=== PATIENT | female | born 1990 | race Caucasian/White ===

== ENCOUNTER 2016-07-08 06:37 | Emergency (ER) | payer MEDICAID, OTHER | END 2016-07-08 07:31 | disposition home or self-care (01) | DX: J02.9 Acute pharyngitis, unspecified (principal) ==

== ENCOUNTER 2017-07-11 10:31 | Outpatient (CLI) | payer BC | END 2017-07-11 10:32 | disposition critical access hospital (66) | LOC: EMS 10:31 | PROVIDERS: ATTEND Surgery | DX: R07.9 Chest pain, unspecified (principal) | CPT/HCPCS: A0425; A0427 ==

== ENCOUNTER 2017-07-11 10:49 | Emergency (ER) | payer BC ==
--- NOTE | 2017-07-11 10:57 | ED Physician Documentation ---
History of Present Illness - Stated complaint Stated Complaint: CP - Additonal information Additional information: hx from pt 26 female healthy but strong fhx ACD starting in age 30s and 40s has been having int CP for 6 months but has not seen her PMD or been worked up for that today more severe episode waxing and waning but present from 9-11 AM with SOA and feeling faint no diaphoresis no NV no leg pain or swelling no recent travel no fever cough pain resolved now called PMD and referred to the ER Review of Systems Constitutional: denies: Fever, Sweats Cardiac: reports: Chest pain / pressure Respiratory: reports: Dyspnea. 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 - Present Medications Home Medications: Ambulatory Orders Medication Instructions Recorded Confirmed No Known Home Medications [No 06/27/16 07/11/17 Known Home Medications] - Allergies Allergies/Adverse Reactions: Allergies Allergy/AdvReac Type Severity Reaction Status Date / Time No Known Drug Allergies Allergy Verified 07/11/17 10:59 - Social History Does the pt smoke?: No Smoking Status: Never smoker Does the pt drink ETOH?: No Does the pt have substance abuse?: No - Immunizations Immunizations are current?: Yes - POLST Patient has POLST: No PD ED PE NORMAL - Vitals Vital signs reviewed: Yes - General General: Alert and oriented X 3 - HEENT HEENT: PERRL - Neck Neck: Supple, no meningeal sign - Cardiac Cardiac: RRR - Respiratory Respiratory: No respiratory distress, Clear bilaterally - Abdomen Abdomen: Soft, Non tender - Derm Derm: Normal color - Extremities Extremities: No deformity - Neuro Neuro: Alert and oriented X 3, No motor deficit, No sensory deficit Results - Vitals Vitals: Vital Signs - 24 hr 07/11/17 07/11/17 07/11/17 10:50 12:53 14:59 Temperature 36.4 C L Heart Rate 82 86 94 Respiratory 18 16 18 Rate Blood Pressure 147/99 H 137/89 H 126/74 O2 Saturation 98 98 97 Oxygen O2 Source Room air - EKG (time done) 1058 Rate: Rate (enter#) (86) Rhythm: NSR [place]: Normal Intervals: Normal ND Ischemia: Normal ST segments - Labs Labs: Laboratory Tests 07/11/17 07/11/17 07/11/17 11:06 11:06 11:06 WBC 9.1 RBC 5.00 Hgb 13.6 Hct 40.5 MCV 81.0 MCH 27.2 MCHC 33.5 RDW 13.9 Plt Count 238 MPV 8.0 Neut # 6.2 Lymph # 2.3 Saunders # 0.3 Eos # 0.2 Baso # 0.1 Absolute Nucleated RBC 0.00 Nucleated RBC % 0.1 Sodium 138 Potassium 3.9 Chloride 101 Carbon Dioxide 22 Anion Gap 15.0 H BUN 12 Creatinine 0.6 Estimated GFR (MDRD) 120 Glucose 97 Calcium 9.4 Total Bilirubin 0.5 AST 27 ALT 37 Alkaline Phosphatase 65 Troponin I < 0.04 Total Protein 8.4 H Albumin 4.3 Globulin 4.1 Albumin/Globulin Ratio 1.0 Lipase 20 L 07/11/17 13:56 WBC RBC Hgb Hct MCV MCH MCHC RDW Plt Count MPV Neut # Lymph # Saunders # Eos # Baso # Absolute Nucleated RBC Nucleated RBC % Sodium Potassium Chloride Carbon Dioxide Anion Gap BUN Creatinine Estimated GFR (MDRD) Glucose Calcium Total Bilirubin AST ALT Alkaline Phosphatase Troponin I < 0.04 Total Protein Albumin Globulin Albumin/Globulin Ratio Lipase - Rads (name of study) CXR Radiology: See rad report (no acute) PD MEDICAL DECISION MAKING - ED course ED course: HEART score 2 (mod suspicious hx and 1 risk factor) neg trop at 0 hr will rpt 3 hr trop and if neg pt very low riisk and does not need emergent stress testing and will dc also PERC neg so do not feel needs CT Departure - Departure Disposition: 01 Home, Self Care Clinical Impression: Chest pain Qualifiers: Chest pain type: unspecified Qualified Code(s): R07.9 - Chest pain, unspecified Condition: Good Instructions: ED Chest Pain Atypical Unkn Cause Follow-Up: Ulisses Powers DO [Primary Care Provider] - Comments: Your heart checked out fine - it does not seem you pain is due to a heart attack. Although I don't think todays pain was due to your heart, your strong family history of cardiac disease is concerning and it might be a good idea to discuss getting a stress test with your PMD. Your work up also does not suggest a blood clot in your lung, an aneurysm or your aorta, or a lung infection/collapse
[2017-07-11 11:16] LABS: BASOPHILS # (AUTO) 0.1 10^3/uL (0.0-0.1); BASOPHILS % (AUTO) 0.6 %; EOSINOPHILS # (AUTO) 0.2 10^3/uL (0.0-0.7); EOSINOPHILS % (AUTO) 2.2 %; HGB - HEMOGLOBIN 13.6 g/dL (12.0-16.0); LYMPHOCYTES # (AUTO) 2.3 10^3/uL (1.5-3.5); LYMPHOCYTES % (AUTO) 25.2 %; MEAN CORPUSCULAR HEMOGLOBIN 27.2 pg (27.0-31.0); MEAN CORPUSCULAR HGB CONC 33.5 g/dL (32.0-36.0); MONOCYTES # (AUTO) 0.3 10^3/uL (0.0-1.0); MONOCYTES % (AUTO) 3.5 %; NEUTROPHILS # (AUTO) 6.2 10^3/uL (1.5-6.6); NEUTROPHILS % (AUTO) 68.5 %; PLT - PLATELET COUNT 238 10^3/uL (130-450); RED CELL DISTRIBUTION WIDTH 13.9 % (12.0-15.0); WHITE BLOOD COUNT 9.1 x10^3/uL (4.8-10.8)
[2017-07-11 11:26] LABS: ALBUMIN 4.3 g/dL (3.2-5.5); BILIRUBIN,TOTAL 0.5 mg/dL (0.2-1.0); CALCIUM 9.4 mg/dL (8.5-10.3); CREATININE 0.6 mg/dL (0.4-1.0); TOTAL PROTEIN 8.4 g/dL (6.7-8.2)
--- NOTE | 2017-07-11 11:51 | XRAY Report ---
EXAM: CHEST RADIOGRAPHY EXAM DATE: 07/11/2017 11:17 AM. CLINICAL HISTORY: Left-sided chest pain and shortness of breath. COMPARISON: None. TECHNIQUE: 2 views. FINDINGS: Lungs/Pleura: No focal opacities evident. No pleural effusion. No pneumothorax. Normal volumes. Mediastinum: Heart and mediastinal contours are unremarkable. Other: No acute osseous abnormalities are identified. IMPRESSION: 1. No acute disease in the chest. [facility] Referring Provider Line: [phone] SITE ID: [id number]
[2017-07-11 15:22] VITALS: BP 128/80
== END 2017-07-11 15:30 | disposition home or self-care (01) ==
LOC: EDUNIT# → ED 10:49
DX: R07.9 Chest pain, unspecified (principal); Z82.49 Family history of ischemic heart disease and other diseases of the circulatory system
CPT/HCPCS: 36415; 71046; 80053; 83690; 84484; 85025; 93005; 99284

== ENCOUNTER 2018-05-09 19:48 | Outpatient (CLI) | payer OTHER ==
--- NOTE | 2018-05-10 10:50 | XRAY Report ---
Reason: RIGHT ANKLE PAIN Procedure Date: 05/09/2018 Accession Number: [id number] / [id number] Procedure: XR - Ankle 3 View RT CPT Code: FULL RESULT: EXAM: RIGHT ANKLE RADIOGRAPHY EXAM DATE: 05/09/2018 08:10 PM. CLINICAL HISTORY: Right ankle pain. COMPARISON: None. TECHNIQUE: 3 views. FINDINGS: Bones: Normal. No fractures or bone lesions. Joints: Normal. No effusion. No subluxations. The ankle mortise is normally aligned. Soft Tissues: Normal. No soft tissue swelling. IMPRESSION: Normal ankle radiography. [facility]
== END 2018-05-09 19:49 | disposition home or self-care (01) ==
LOC: DI 19:48
PROVIDERS: ATTEND Family Medicine
DX: M25.571 Pain in right ankle and joints of right foot (principal)

== ENCOUNTER 2018-06-13 17:32 | Outpatient (CLI) | payer OTHER ==
[2018-06-13 18:02] LABS: ALBUMIN 4.3 g/dL (3.2-5.5); ALBUMIN/GLOBULIN RATIO 1.2 (1.0-2.2); ALKALINE PHOSPHATASE 75 IU/L (42-121); ALT ALANINE AMINOTRANSFERASE 88 IU/L (10-60); AST ASPARTATE AMINOTRANSFERASE 59 IU/L (10-42); BILIRUBIN,TOTAL 0.7 mg/dL (0.2-1.0); BUN - BLOOD UREA NITROGEN 12 mg/dL (6-20); CARBON DIOXIDE - CO2 28 mmol/L (21-32); CHLORIDE 102 mmol/L (101-111); CK- CREATINE KINASE 128 IU/L (22-269); CREATININE 0.8 mg/dL (0.4-1.0); GFR - MDRD 85 (>89); GLUCOSE 93 mg/dL (70-100); SODIUM 138 mmol/L (135-145)
[2018-06-13 18:08] LABS: TROPONIN I < 0.04 ng/mL (<0.49)
[2018-06-13 18:10] LABS: CKMB % 0.9 % (0.0-4.0); CREATINE KINASE MB 1.1 ng/mL (0.6-6.3)
[2018-06-13 18:11] LABS: BASOPHILS # (AUTO) 0.1 10^3/uL (0.0-0.1); BASOPHILS % (AUTO) 0.6 %; EOSINOPHILS # (AUTO) 0.2 10^3/uL (0.0-0.7); EOSINOPHILS % (AUTO) 1.8 %; HGB - HEMOGLOBIN 13.9 g/dL (12.0-16.0); LYMPHOCYTES # (AUTO) 3.1 10^3/uL (1.5-3.5); LYMPHOCYTES % (AUTO) 33.3 %; MEAN CORPUSCULAR HEMOGLOBIN 27.2 pg (27.0-31.0); MEAN CORPUSCULAR VOLUME 82.4 fL (81.0-99.0); MEAN PLATELET VOLUME 8.6 fL (7.9-10.8); MONOCYTES # (AUTO) 0.3 10^3/uL (0.0-1.0); MONOCYTES % (AUTO) 3.7 %; NEUTROPHILS # (AUTO) 5.7 10^3/uL (1.5-6.6); NEUTROPHILS % (AUTO) 60.6 %; PLT - PLATELET COUNT 237 10^3/uL (130-450); WHITE BLOOD COUNT 9.3 x10^3/uL (4.8-10.8)
== END 2018-06-13 17:33 | disposition home or self-care (01) ==
LOC: LAB 17:32
PROVIDERS: ATTEND Nurse Practitioner
DX: R07.89 Other chest pain (principal)
CPT/HCPCS: 36415; 80053; 82550; 82553; 84443; 84484; 85025

== ENCOUNTER 2018-09-26 10:18 | Outpatient (CLI) | payer BC, OTHER ==
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
== END 2018-09-26 10:19 | disposition home or self-care (01) ==
LOC: DI.WCP 10:18
PROVIDERS: ATTEND Nurse Practitioner
DX: S62.630A Displaced fracture of distal phalanx of right index finger, initial encounter for closed fracture (principal)
CPT/HCPCS: 73140

== ENCOUNTER 2018-11-26 09:16 | Emergency (ER) | payer BC ==
--- NOTE | 2018-11-26 09:58 | XRAY Report ---
Reason: SOB,productive cough Procedure Date: 11/26/2018 Accession Number: [id number] / [id number] Procedure: XR - Chest 2 View X-Ray CPT Code: 26239 FULL RESULT: EXAM: CHEST RADIOGRAPHY EXAM DATE: 11/26/2018 09:47 AM. CLINICAL HISTORY: Shortness of breath and productive cough. COMPARISON: CHEST 2 VIEW 07/11/2017 11:16 AM. TECHNIQUE: 2 views. FINDINGS: Lungs/Pleura: No focal opacities evident. No pleural effusion. No pneumothorax. Normal volumes. Mediastinum: Heart and mediastinal contours are unremarkable. Other: None. IMPRESSION: Normal 2-view chest radiography. [facility]
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
[2018-11-26] MEDS ORDERED: CHERRY SYRUP 10 ML UDC PO ONE (11:10)
[2018-11-26] MEDS ORDERED: DEXAMETHASONE 10 MG/ML VIAL PO STA (11:10)
[2018-11-26 11:23] VITALS: BP 151/101
== END 2018-11-26 11:23 | disposition home or self-care (01) ==
LOC: ED 09:16
DX: H66.002 Acute suppurative otitis media without spontaneous rupture of ear drum, left ear (principal)
CPT/HCPCS: 71046; 99283; A9270

== ENCOUNTER 2018-12-28 19:27 | Emergency (ER) | payer OTHER, BC ==
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
[2018-12-28] MEDS ORDERED: ACETAMINOPHEN 325 MG TABLET PO STA (20:23)
[2018-12-28] MEDS ORDERED: IBUPROFEN 600 MG TABLET PO STA (20:23)
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
[2018-12-28] MEDS ORDERED: HYDROcod/ACET 5/325 Prepack 4 PO STA (21:51)
== END 2018-12-28 22:02 | disposition home or self-care (01) ==
LOC: ED 19:27
DX: S16.1XXA Strain of muscle, fascia and tendon at neck level, initial encounter (principal); S29.012A Strain of muscle and tendon of back wall of thorax, initial encounter; V89.2XXA Person injured in unspecified motor-vehicle accident, traffic, initial encounter
CPT/HCPCS: 72125; 72128; 99283; A9270

== ENCOUNTER 2019-02-11 08:00 | Outpatient (CLI) | payer BC | END 2019-02-11 23:59 | disposition home or self-care (01) | LOC: LAB.WCP 08:00 | PROVIDERS: ATTEND Physician Assistant | DX: Z33.1 Pregnant state, incidental (principal) | CPT/HCPCS: 36415; 84702 ==

== ENCOUNTER 2019-02-11 21:08 | Outpatient (CLI) | payer BC ==
--- NOTE | 2019-02-12 01:49 | Ultrasound Report ---
Reason: TEST POSITIVE Procedure Date: 02/11/2019 Accession Number: [id number] / [id number] Procedure: US - OB First Trimester CPT Code: FULL RESULT: EXAM: FIRST TRIMESTER OBSTETRIC ULTRASOUND (Less than 11 weeks) EXAM DATE: 02/11/2019 11:00 PM CLINICAL HISTORY: , size, dates. COMPARISONS: None. TECHNIQUE: Transabdominal and transvaginal ultrasound examination with static image documentation. FINDINGS: LMP: 626.19. Estimated gestational age: 6 weeks 6 days. Estimated due date: 10/01/2019. Uterus: Uterus is normal in position and configuration. No suspicious uterine lesion is noted on this examination. Endometrium: There are two tiny cystic appearing foci within the endometrial lining at the uterine fundus. The slightly caudal located cystic focus measures 3.3 x 4.4 x 3.2 mm, with a mean diameter of 3.6 mm; 5 weeks 1 day. Slightly cephalad located cystic abnormality measures 3.9 x 3.1 x 4.0 mm. No definite perigestational collection visualized on this exam. Cervix: No suspicious lesion. Right Ovary: Normal appearance of the right ovary noted, measuring 2.6 x 1.3 x 1.6 cm. Left Ovary: Physiologic appearance of the left ovary, measuring 4.1 x 2.4 x 2.6 cm. There is a 1.7 cm simple cyst within the left ovary. Fluid: No signficant free fluid. Other: No other significant findings. IMPRESSION: 1. There are two intradecidual cystic abnormalities measuring up to 5 weeks 1 day. A twin is suspected. Follow-up imaging as clinically warranted. 2. No perigestational fluid collection noted. 3. Size is discordant with dates based on LMP. The call report notification system was initiated by Dr. Carola Torres at 01:48 AM on 02/12/2019. The above call report findings were discussed with Dr. Hough by Dr. Carola Torres at 01:57 AM on 02/12/2019.
--- NOTE | 2019-02-12 01:50 | Ultrasound Report ---
Reason: TEST POSITIVE Procedure Date: 02/11/2019 Accession Number: [id number] / [id number] Procedure: US - OB Transvaginal CPT Code: FULL RESULT: EXAM: FIRST TRIMESTER OBSTETRIC ULTRASOUND (Less than 11 weeks) EXAM DATE: 02/11/2019 11:00 PM CLINICAL HISTORY: , size, dates. COMPARISONS: None. TECHNIQUE: Transabdominal and transvaginal ultrasound examination with static image documentation. FINDINGS: LMP: 626.19. Estimated gestational age: 6 weeks 6 days. Estimated due date: 10/01/2019. Uterus: Uterus is normal in position and configuration. No suspicious uterine lesion is noted on this examination. Endometrium: There are two tiny cystic appearing foci within the endometrial lining at the uterine fundus. The slightly caudal located cystic focus measures 3.3 x 4.4 x 3.2 mm, with a mean diameter of 3.6 mm; 5 weeks 1 day. Slightly cephalad located cystic abnormality measures 3.9 x 3.1 x 4.0 mm. No definite perigestational collection visualized on this exam. Cervix: No suspicious lesion. Right Ovary: Normal appearance of the right ovary noted, measuring 2.6 x 1.3 x 1.6 cm. Left Ovary: Physiologic appearance of the left ovary, measuring 4.1 x 2.4 x 2.6 cm. There is a 1.7 cm simple cyst within the left ovary. Fluid: No signficant free fluid. Other: No other significant findings. IMPRESSION: 1. There are two intradecidual cystic abnormalities measuring up to 5 weeks 1 day. A twin is suspected. Follow-up imaging as clinically warranted. 2. No perigestational fluid collection noted. 3. Size is discordant with dates based on LMP. The call report notification system was initiated by Dr. Carola Torres at 01:48 AM on 02/12/2019. The above call report findings were discussed with Dr. Hough by Dr. Carola Torres at 01:57 AM on 02/12/2019.
== END 2019-02-11 21:09 | disposition home or self-care (01) ==
LOC: DI 21:08
PROVIDERS: ATTEND Obstetrics & Gynecology
DX: Z32.01 Encounter for pregnancy test, result positive (principal); O35.8XX0 Maternal care for other (suspected) fetal abnormality and damage, not applicable or unspecified; Z3A.01 Less than 8 weeks gestation of pregnancy
CPT/HCPCS: 76801; 76817

== ENCOUNTER 2019-02-25 16:42 | Outpatient (CLI) | payer BC ==
--- NOTE | 2019-02-28 01:14 | Ultrasound Report ---
Reason: TEST POSITIVE Procedure Date: 02/25/2019 Accession Number: [id number] / [id number] Procedure: US - OB First Trimester CPT Code: FULL RESULT: EXAM: FIRST TRIMESTER OBSTETRIC ULTRASOUND (Less than 11 weeks) EXAM DATE: 02/25/2019 06:00 PM. CLINICAL HISTORY: TEST POSITIVE. LMP: 12/25/2018. COMPARISONS: OB FIRST TRIMESTER 02/11/2019 10:09 PM. TECHNIQUE: Transabdominal and transvaginal ultrasound examination with static image documentation. CLINICAL DATES: EGA 8 weeks 6 days with JANUSZ 10/01/2019 based on LMP. ASSESSMENT: Gestational Sac: 2 intrauterine gestational sacs are again seen.. Fetus A: Mean gestational sac diameter: 10 mm = 5 weeks 5 days. Embryo: CRL (crown-rump length) 9 mm = 6 weeks 6 days. Cardiac activity: 139 beats per minute. Yolk sac: 5 mm. Amniotic fluid: Not accurately assessed at this gestational age. Early placenta: Not visible at this gestational age. Fetus B: Mean gestational sac diameter: 17 mm = 6 weeks 4 days. Embryo: CRL (crown-rump length) 9 mm = 7 weeks 0 days. Cardiac activity: 141 beats per minute. Yolk sac: 4 mm. Amniotic fluid: Not accurately assessed at this gestational age. Early placenta: Not visible at this gestational age. Other: 1.8 cm perigestational hemorrhage adjacent to the gestational sac of fetus B. MATERNAL STRUCTURES: Uterus: Anteverted. Unremarkable. Cervix: Closed. Right Ovary/Adnexa: Not visualized, secondary to habitus and bowel gas. Left Ovary/Adnexa: The ovary measures 3.0 x 2.3 x 1.8 cm, volume 8 cc. 2.1 cm corpus luteum. Free Fluid: None. Other: None. IMPRESSION: Viable twin gestations, dichorionic diamniotic. By crown-rump length, gestational age is estimated 6 weeks 6 days, with JANUSZ 10/15/2019, 2 weeks later than expected by LMP dating. Small perigestational hemorrhage adjacent to the fetus B gestational sac. RADIA
== END 2019-02-25 16:43 | disposition home or self-care (01) ==
LOC: DI 16:42
PROVIDERS: ATTEND Obstetrics & Gynecology
DX: Z32.01 Encounter for pregnancy test, result positive (principal)
CPT/HCPCS: 76801; 76817

== ENCOUNTER 2019-03-14 09:48 | Outpatient (CLI) | payer BC ==
[2019-03-14 14:42] LABS: MUDS CUTOFF CONCENTRATIONS CUTOFF CONC BELOW:
[2019-03-14 15:05] LABS: AMPHETAMINE SCREEN,URINE NEGATIVE (NEGATIVE); BENZODIAZEPINES SCREEN, URINE NEGATIVE (NEGATIVE); COCAINE SCREEN URINE NEGATIVE (NEGATIVE); METHADONE SCREEN, URINE NEGATIVE (NEGATIVE); METHAMPHETAMINES SCREEN, URINE NEGATIVE (NEGATIVE); OPIATE SCREEN, URINE NEGATIVE (NEGATIVE); OXYCODONE SCREEN, URINE NEGATIVE (NEGATIVE); PROPOXYPHENE SCREEN, URINE NEGATIVE (NEGATIVE); TRICYCLIC ANTIDEPRESSANT,URINE NEGATIVE (NEGATIVE)
[2019-03-14 21:52] LABS: TRICHOMONAS VAGINALIS DNA NEGATIVE (NEGATIVE)
== END 2019-03-14 23:59 | disposition home or self-care (01) ==
LOC: LAB.R 09:48
PROVIDERS: ATTEND Obstetrics & Gynecology
DX: O34.211 Maternal care for low transverse scar from previous cesarean delivery (principal)
CPT/HCPCS: 80306; 87491; 87591; 87661

== ENCOUNTER 2019-04-04 10:23 | Outpatient (CLI) | payer BC ==
[2019-04-04 10:32] LABS: MUDS CUTOFF CONCENTRATIONS CUTOFF CONC BELOW:
[2019-04-04 18:43] LABS: BASOPHILS % (AUTO) 0.2 %; EOSINOPHILS # (AUTO) 0.1 10^3/uL (0.0-0.7); EOSINOPHILS % (AUTO) 0.9 %; HGB - HEMOGLOBIN 11.8 g/dL (12.0-16.0); LYMPHOCYTES # (AUTO) 2.1 10^3/uL (1.5-3.5); LYMPHOCYTES % (AUTO) 21.5 %; MEAN CORPUSCULAR HEMOGLOBIN 26.1 pg (27.0-31.0); MEAN CORPUSCULAR VOLUME 84.3 fL (81.0-99.0); MEAN PLATELET VOLUME 10.8 fL (7.9-10.8); MONOCYTES # (AUTO) 0.4 10^3/uL (0.0-1.0); MONOCYTES % (AUTO) 4.2 %; NEUTROPHILS # (AUTO) 7.2 10^3/uL (1.5-6.6); NEUTROPHILS % (AUTO) 72.9 %; PLT - PLATELET COUNT 233 10^3/uL (130-450); RED BLOOD COUNT 4.52 10^6/uL (4.20-5.40); RED CELL DISTRIBUTION WIDTH 14.9 % (12.0-15.0); WHITE BLOOD COUNT 9.8 x10^3/uL (4.8-10.8)
[2019-04-04 18:53] LABS: AMPHETAMINE SCREEN,URINE NEGATIVE (NEGATIVE); BENZODIAZEPINES SCREEN, URINE NEGATIVE (NEGATIVE); COCAINE SCREEN URINE NEGATIVE (NEGATIVE); METHADONE SCREEN, URINE NEGATIVE (NEGATIVE); METHAMPHETAMINES SCREEN, URINE NEGATIVE (NEGATIVE); OPIATE SCREEN, URINE NEGATIVE (NEGATIVE); OXYCODONE SCREEN, URINE NEGATIVE (NEGATIVE); PROPOXYPHENE SCREEN, URINE NEGATIVE (NEGATIVE); TRICYCLIC ANTIDEPRESSANT,URINE NEGATIVE (NEGATIVE)
[2019-04-04 19:35] LABS: HB2 TOTAL 12.6 g/dL; HEMOGLOBIN A1C 0.42 g/dL; HEMOGLOBIN A1C % 5.2 % (4.6-6.2)
[2019-04-04 21:59] LABS: TRICHOMONAS VAGINALIS DNA NEGATIVE (NEGATIVE)
[2019-04-05 10:06] LABS: HEPATITIS B SURFACE ANTIGEN NON-REACTIVE (NON-REACTIVE)
[2019-04-05 10:37] LABS: HEPATITIS C ANTIBODY NON-REACTIVE (NON-REACTIVE)
[2019-04-07 16:16] LABS: HIV AG/AB 4TH GEN NON-REACTIVE (NON-REACTIVE)
== END 2019-04-04 23:59 | disposition home or self-care (01) ==
LOC: LAB.WCP 10:23
PROVIDERS: ATTEND Obstetrics & Gynecology
DX: O34.211 Maternal care for low transverse scar from previous cesarean delivery (principal); Z13.79 Encounter for other screening for genetic and chromosomal anomalies
CPT/HCPCS: 36415; 80306; 81599; 83036; 85025; 86762; 86803; 86850; 86900; 86901; 87340; 87389; 87491; 87591; 87661

== ENCOUNTER 2019-05-07 08:00 | Outpatient (CLI) | payer BC ==
[2019-05-07 19:09] LABS: BASOPHILS % (AUTO) 0.3 %; EOSINOPHILS # (AUTO) 0.2 10^3/uL (0.0-0.7); EOSINOPHILS % (AUTO) 1.5 %; HGB - HEMOGLOBIN 11.3 g/dL (12.0-16.0); LYMPHOCYTES # (AUTO) 2.2 10^3/uL (1.5-3.5); LYMPHOCYTES % (AUTO) 21.6 %; MEAN CORPUSCULAR HEMOGLOBIN 26.8 pg (27.0-31.0); MEAN CORPUSCULAR HGB CONC 31.6 g/dL (32.0-36.0); MEAN CORPUSCULAR VOLUME 84.8 fL (81.0-99.0); MEAN PLATELET VOLUME 10.5 fL (7.9-10.8); MONOCYTES # (AUTO) 0.3 10^3/uL (0.0-1.0); MONOCYTES % (AUTO) 3.3 %; NEUTROPHILS # (AUTO) 7.5 10^3/uL (1.5-6.6); PLT - PLATELET COUNT 244 10^3/uL (130-450); RED BLOOD COUNT 4.22 10^6/uL (4.20-5.40); RED CELL DISTRIBUTION WIDTH 15.3 % (12.0-15.0); WHITE BLOOD COUNT 10.2 x10^3/uL (4.8-10.8)
[2019-05-07 19:34] LABS: ALBUMIN 3.2 g/dL (3.2-5.5); BILIRUBIN,TOTAL 0.4 mg/dL (0.2-1.0); CREATININE 0.5 mg/dL (0.4-1.0)
[2019-05-07 20:01] LABS: TOTAL PROTEIN 24HR,URINE 215 mg/24hr (40-150); TOTAL PROTEIN,URINE TIMED 11 mg/dL; TOTAL VOLUME 24HRS,URINE 1950 mL
[2019-05-07 21:59] LABS: TRICHOMONAS VAGINALIS DNA NEGATIVE (NEGATIVE)
== END 2019-05-07 23:59 | disposition home or self-care (01) ==
LOC: LAB.WCP 08:00
PROVIDERS: ATTEND Obstetrics & Gynecology
DX: O09.93 Supervision of high risk pregnancy, unspecified, third trimester (principal); O16.2 Unspecified maternal hypertension, second trimester; O98.319 Other infections with a predominantly sexual mode of transmission complicating pregnancy, unspecified trimester; A56.8 Sexually transmitted chlamydial infection of other sites; Z3A.00 Weeks of gestation of pregnancy not specified
CPT/HCPCS: 36415; 82040; 82247; 82565; 84156; 84450; 84460; 84550; 85025; 87491; 87591; 87661

== ENCOUNTER 2019-05-14 14:26 | Emergency (ER) | payer BC, OTHER, MEDICAID ==
[2019-05-14 14:41] VITALS: BP 141/96
[2019-05-14 15:11] LABS: BILIRUBIN,URINE NEGATIVE (NEGATIVE); GLUCOSE, URINE (UA) NEGATIVE (NEGATIVE); KETONES,URINE (UA) NEGATIVE (NEGATIVE); LEUKOCYTE ESTERASE, URINE NEGATIVE (NEGATIVE); NITRITE,URINE NEGATIVE (NEGATIVE); OCCULT BLOOD,URINE TRACE-INTA (NEGATIVE); PH,URINE 5.5 PH (5.0-7.5); PROTEIN,URINE NEGATIVE (NEGATIVE); UROBILINOGEN,URINE 0.2 (NORMAL) E.U./dL (NORMAL)
[2019-05-14 15:12] LABS: CLARITY,URINE SL. CLOUDY (CLEAR); HCG UR QUAL POSITIVE
[2019-05-14 15:15] LABS: BACTERIA,URINE Rare /HPF (None Seen); RBC,URINE 0-5 /HPF (0-5); SQUAMOUS EPITHELIAL CELL,UR MANY Squamous (<= Few)
--- NOTE | 2019-05-14 15:59 | ED Physician Documentation ---
PD HPI FEMALE - Stated complaint Stated Complaint: SPOTTING/18 WKS - Chief complaint Chief Complaint: Abd Pain - History obtained from History obtained from: Patient - History of Present Illness Timing - onset: How many days ago (2) Timing - duration: Days (2) Timing - details: Abrupt onset, Intermittant (having spotting red blood vaginally for 2 days. No discharge.) Associated symptoms: Vaginal bleeding. No: Fever, Abdominal pain, Vaginal pain, Vaginal discharge, Dysuria Contributing factors: (18 weeks with twins. Referred to maternal/ due to high BMI and twins, so high risk. Has not had first appt yet. 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: G (2), P (1) Similar symptoms before: Has not had sx before Review of Systems Constitutional: denies: Fever, Chills Nose: denies: Rhinorrhea / runny nose, Congestion Throat: denies: Sore throat Respiratory: denies: Cough GI: denies: Nausea, Vomiting, Diarrhea : denies: Dysuria, Frequency Skin: denies: Rash PD PAST MEDICAL HISTORY - Past Medical History Cardiovascular: None Respiratory: None Endocrine/Autoimmune: None GI: None ELECTRICAL ELECTRONICS TECHNICIAN: None : None HEENT: None Psych: None, Anxiety Musculoskeletal: None Derm: None - Past Surgical History Past Surgical History: Yes /ELECTRICAL ELECTRONICS TECHNICIAN: section - Present Medications Home Medications: Ambulatory Orders Medication Instructions Recorded Confirmed Amox/Clav 875/125 [Augmentin] 1 each PO Q12H #20 tablet 11/26/18 Benzonatate [Tessalon Perle] 100 - 200 mg PO TID PRN #30 capsule 11/26/18 Hydrocodone/Acetaminophen [Woodrow 1 each PO Q6H PRN #15 tablet 12/28/18 5-325 Tablet] - Allergies Allergies/Adverse Reactions: Allergies Allergy/AdvReac Type Severity Reaction Status Date / Time No Known Drug Allergies Allergy Verified 05/14/19 14:36 - Social History Does the pt smoke?: No Smoking Status: Never smoker Does the pt drink ETOH?: No Does the pt have substance abuse?: No - Immunizations Immunizations are current?: Yes - POLST Patient has POLST: No PD ED PE NORMAL - Vitals Vital signs reviewed: Yes - General General: Alert and oriented X 3, No acute distress, Well developed/nourished - Cardiac Cardiac: RRR, No murmur - Respiratory Respiratory: Clear bilaterally - Abdomen Abdomen: Normal bowel sounds, Soft, Non tender, Non distended, No organomegaly, Other (gravid with fundus just below umbilicus.) - Female Female : Deferred, Other (bedside U/S showing viable twins with normal HR 120s, both with movement. Uterus appears normal. The upper cervix appears normal and there is not any engagement of the feti at the cervix. No free fluid in pelvis. ) - Rectal Rectal: Deferred - Back Back: No CVA TTP - Derm Derm: Normal color, Warm and dry Results - Vitals Vitals: Oxygen O2 Source Room air - Labs Labs: Laboratory Tests 05/14/19 14:50 Urine Color YELLOW Urine Clarity SL. CLOUDY Urine pH 5.5 Ur Specific [place] >=1.030 H Urine Protein NEGATIVE Urine Glucose (UA) NEGATIVE Urine Ketones NEGATIVE Urine Occult Blood TRACE-INTA Urine Nitrite NEGATIVE Urine Bilirubin NEGATIVE Urine Urobilinogen 0.2 (NORMAL) Ur Leukocyte Esterase NEGATIVE Urine RBC 0-5 Urine WBC 0-3 Ur Squamous Epith Cells MANY Squamous H Urine Bacteria Rare Urine Culture Comments NOT INDICATED Urine HCG, Qual POSITIVE PD MEDICAL DECISION MAKING - ED course Complexity details: reviewed results (bedside U/S showing good movement and HR. ), considered differential, d/w patient Departure - Departure Disposition: 01 Home, Self Care Clinical Impression: Pelvic cramping in antepartum period Qualifiers: Weeks of gestation: 18 weeks Qualified Code(s): Z3A.18 - 18 weeks gestation of Condition: Stable Record reviewed to determine appropriate education?: Yes Instructions: ED Pelvic Pain Preg UKO 2 or 3 Tri Comments: Stay well-hydrated. You can use some ibuprofen 400 to 600 mg 3 times a day for the next few days. Add Tylenol every 4-6 hours as needed for pains. Recheck with your current PRINCIPAL SECURITY ARCHITECT if they will see you ahead of getting to the . Otherwise you can return to the ER if not improved over the next couple of days. Return if increasing pain, bleeding, or other symptoms such as fever vomiting or other concerns. At this point the both babies appear normal on bedside ultrasound in the upper cervix appears normal. I did not see any free fluid in the pelvis to suggest internal bleeding. I would anticipate the bleeding and cramping to stop over the next day or 2 and follow-up if it is has not. Discharge Date/Time: 05/14/19 16:40
[2019-05-14] MEDS ORDERED: IBUPROFEN 600 MG TABLET PO STA (16:24)
[2019-05-14] MEDS ORDERED: ACETAMINOPHEN 325 MG TABLET PO STA (16:24)
== END 2019-05-14 16:40 | disposition home or self-care (01) ==
LOC: ED 14:26
DX: O99.89 Other specified diseases and conditions complicating pregnancy, childbirth and the puerperium (principal); R10.2 Pelvic and perineal pain; Z3A.18 18 weeks gestation of pregnancy
CPT/HCPCS: 81001; 81025; 99283; 99284; A9270; 87086

== ENCOUNTER 2019-07-07 17:37 | Outpatient (CLI) | payer BC, OTHER, MEDICAID ==
--- NOTE | 2019-07-07 19:14 | PROCEDURE REPORT ---
- HPI Diagnosis/Indication for NST: Multiple gestation (Pt is a 28 Yo with twins at 24 weeks. she is being seen at the because of increased BMI.) Twins at 2 4weeks - NST Procedure Strip with out decelerations - Results and Plan Findings/Impression: 24 weeks twins without decelerations Plan: start NST at 30 weeks
[2019-07-07 20:30] VITALS: BP 139/85
== END 2019-07-07 18:45 | disposition home or self-care (01) ==
LOC: WFO 17:37 → FBP 17:39 → WFO 18:45
PROVIDERS: ATTEND Obstetrics & Gynecology
DX: O30.002 Twin pregnancy, unspecified number of placenta and unspecified number of amniotic sacs, second trimester (principal); Z3A.24 24 weeks gestation of pregnancy
CPT/HCPCS: 59025

== ENCOUNTER 2019-07-18 17:03 | Outpatient (CLI) | payer BC, OTHER, MEDICAID ==
[2019-07-18 18:50] LABS: BASOPHILS % (AUTO) 0.3 %; EOSINOPHILS # (AUTO) 0.1 10^3/uL (0.0-0.7); EOSINOPHILS % (AUTO) 1.1 %; HGB - HEMOGLOBIN 10.1 g/dL (12.0-16.0); LYMPHOCYTES # (AUTO) 2.7 10^3/uL (1.5-3.5); LYMPHOCYTES % (AUTO) 21.7 %; MEAN CORPUSCULAR HEMOGLOBIN 26.2 pg (27.0-31.0); MEAN CORPUSCULAR HGB CONC 31.3 g/dL (32.0-36.0); MEAN CORPUSCULAR VOLUME 83.9 fL (81.0-99.0); MEAN PLATELET VOLUME 10.1 fL (7.9-10.8); MONOCYTES # (AUTO) 0.5 10^3/uL (0.0-1.0); NEUTROPHILS % (AUTO) 72.4 %; PLT - PLATELET COUNT 235 10^3/uL (130-450); RED BLOOD COUNT 3.85 10^6/uL (4.20-5.40); RED CELL DISTRIBUTION WIDTH 13.8 % (12.0-15.0); WHITE BLOOD COUNT 12.5 x10^3/uL (4.8-10.8)
[2019-07-18 19:04] LABS: ALBUMIN 2.8 g/dL (3.2-5.5); ALBUMIN/GLOBULIN RATIO 0.8 (1.0-2.2); BILIRUBIN,TOTAL 0.4 mg/dL (0.2-1.0); CALCIUM 8.6 mg/dL (8.5-10.3); CREATININE 0.6 mg/dL (0.4-1.0); TOTAL PROTEIN 6.5 g/dL (6.7-8.2)
[2019-07-18 19:12] VITALS: BP 139/72
[2019-07-18 19:58] LABS: CREATININE,URINE 235.8 mg/dL; PROTEIN/CREATININE RATIO,URINE 0.1 (<=0.2)
--- NOTE | 2019-07-18 22:26 | Ultrasound Report ---
Reason: vag. bleeding Procedure Date: 07/18/2019 Accession Number: [id number] / [id number] Procedure: US - OB Biophysical Profile CPT Code: Final Report FULL RESULT: EXAM: BIOPHYSICAL PROFILE EXAM DATE: 07/18/2019 07:43 PM. CLINICAL HISTORY: Vag. bleeding. Twin gestation COMPARISON: 02/25/2019. TECHNIQUE: Real-time sonographic evaluation of the fetus performed by the graphic designer. Multiple automobile rental representative static images were saved for review. Transvaginal scanning was performed for better evaluation of cervical length. DATING: Established EGA 27 weeks 2 days with JANUSZ 10/15/2019. GENERAL EVALUATION Viable twin gestations. Fetus A: Cardiac activity: 149 bpm. movement: Visualized. Presentation: Cephalic. Placenta: Anterior position. No evidence for previa or abruption. Amniotic fluid: Normal. MVP 5.5 cm. BIOPHYSICAL PROFILE Breathing = 2 Movement = 2 Tone = 2 Amniotic Fluid = 2 Total 8/8 Fetus B: Cardiac activity: 169 bpm. movement: Visualized. Presentation: Transverse lie, maternal left Placenta: Anterior position. No evidence for previa or abruption. Amniotic fluid: Normal. MVP 4.3 cm. BIOPHYSICAL PROFILE Breathing = 2 Movement = 2 Tone = 2 Amniotic Fluid = 2 Total 8/8 Cervix measures 5.2 cm, and is closed. IMPRESSION: 1. Live twin intrauterine with gestational age 27 weeks 2 days based on previous ultrasound. 2. Biophysical profile score 8 of 8 for both gestations. 3. Anterior placentas, no previa or abruption. 4. Cervix measures 5.2 cm, and is closed. RADIA
--- NOTE | 2019-07-18 22:26 | Ultrasound Report ---
Reason: vag. bleeding Procedure Date: 07/18/2019 Accession Number: [id number] / [id number] Procedure: US - OB Transvaginal CPT Code: Final Report FULL RESULT: EXAM: BIOPHYSICAL PROFILE EXAM DATE: 07/18/2019 07:43 PM. CLINICAL HISTORY: Vag. bleeding. Twin gestation COMPARISON: 02/25/2019. TECHNIQUE: Real-time sonographic evaluation of the fetus performed by the telephonic case manager. Multiple artist representative static images were saved for review. Transvaginal scanning was performed for better evaluation of cervical length. DATING: Established EGA 27 weeks 2 days with JANUSZ 10/15/2019. GENERAL EVALUATION Viable twin gestations. Fetus A: Cardiac activity: 149 bpm. movement: Visualized. Presentation: Cephalic. Placenta: Anterior position. No evidence for previa or abruption. Amniotic fluid: Normal. MVP 5.5 cm. BIOPHYSICAL PROFILE Breathing = 2 Movement = 2 Tone = 2 Amniotic Fluid = 2 Total 8/8 Fetus B: Cardiac activity: 169 bpm. movement: Visualized. Presentation: Transverse lie, maternal left Placenta: Anterior position. No evidence for previa or abruption. Amniotic fluid: Normal. MVP 4.3 cm. BIOPHYSICAL PROFILE Breathing = 2 Movement = 2 Tone = 2 Amniotic Fluid = 2 Total 8/8 Cervix measures 5.2 cm, and is closed. IMPRESSION: 1. Live twin intrauterine with gestational age 27 weeks 2 days based on previous ultrasound. 2. Biophysical profile score 8 of 8 for both gestations. 3. Anterior placentas, no previa or abruption. 4. Cervix measures 5.2 cm, and is closed. RADIA
--- NOTE | 2019-07-19 19:01 | PROCEDURE REPORT ---
- HPI Diagnosis/Indication for NST: Other (vaginal spotting) Current EDU 10/15/19 Gestation 27 Weeks and 2 Days 2 Para 1 Vital Signs Temperature 98.2 F 07/18/19 17:14 Heart Rate 102 H 07/18/19 17:14 Respiratory Rate 20 07/18/19 17:14 Blood Pressure 146/83 H 07/18/19 17:14 O2 Saturation 98 07/18/19 17:14 Temperature 98.2 F 07/18/19 17:14 Heart Rate 102 H 07/18/19 17:14 Respiratory Rate 20 07/18/19 17:14 Blood Pressure 139/72 H 07/18/19 19:10 O2 Saturation 98 07/18/19 17:14 - NST Procedure NST Procedure Start Time 17:56 Stop Time 18:40 - Results and Plan Findings/Impression: NST not performed due to di/di twins at 27w. BPP 8/8 for both. US without a previa, cervix normal. FFN + but contaminated with blood. Pt without further bleeding and bleeding had been scant at home. BP elevated, always is per pt, PIH labs were normal, no sx. She will check BP daily at home and bring log to appts, to triage PRN SBP 150 or higher or DBP 95 or higher or PIH sx. F/u routine, sooner PRN including further VB>
== END 2019-07-18 19:40 | disposition home or self-care (01) ==
LOC: WFO 17:03 → FBP 17:05 → WFO 19:40
PROVIDERS: ATTEND Obstetrics & Gynecology
DX: O26.852 Spotting complicating pregnancy, second trimester (principal); O30.042 Twin pregnancy, dichorionic/diamniotic, second trimester; R03.0 Elevated blood-pressure reading, without diagnosis of hypertension; Z3A.27 27 weeks gestation of pregnancy
CPT/HCPCS: 36415; 76817; 76819; 80053; 82570; 82731; 84156; 85025; 99213

== ENCOUNTER 2019-07-23 15:47 | Outpatient (CLI) | payer BC, OTHER, MEDICAID ==
[2019-07-23 17:24] VITALS: BP 129/63
--- NOTE | 2019-07-23 18:00 | PROVIDER PROGRESS NOTE ---
- HPI Chief Complaint: Vaginal bleeding (Twin preganacy. Pt develpoed vagianl bleed ing sunday. US showed no abruption. Cx bryson 5 cm long. very light bleeing continued. with mucose.) Current : Current EDU 10/15/19 Gestation 28 Weeks and 0 Days 2 Para 1 Vital Signs Temperature 36.5 C 07/23/19 16:00 Heart Rate 97 07/23/19 16:00 Respiratory Rate 18 07/23/19 16:00 Blood Pressure 129/63 07/23/19 16:00 Temperature 36.5 C 07/23/19 16:00 Heart Rate 97 07/23/19 16:00 Respiratory Rate 18 07/23/19 16:00 Blood Pressure 129/63 07/23/19 16:00 O2 Saturation - Exam Spec exam showed dark red blood tinged mucose. Cx is long. uterus is nontender. good motion felt. - Procedures OB Procedure Performed: NST (normal for 28 week twins.) NST Procedure: NST Procedure Start Time 17:56 Stop Time 18:40 - Plan Plan: Ultrasound to visulize the placenta.
--- NOTE | 2019-07-23 21:47 | Ultrasound Report ---
Reason: vaginal bleeding, twins Procedure Date: 07/23/2019 Accession Number: [id number] / [id number] Procedure: US - OB Limited CPT Code: Final Report FULL RESULT: EXAM: LIMITED OBSTETRICAL ULTRASOUND - TWINS EXAM DATE: 07/23/2019 08:14 PM. CLINICAL HISTORY: Vaginal bleeding, twins. COMPARISON: 07/18/2019 ultrasound. TECHNIQUE: Real-time sonographic evaluation of the fetus performed by the blasting contract man. Multiple cash posting representative static images were saved for review. DATING: Established EGA 28 weeks 0 days with JANUSZ 10/15/2019 based on established dates. TWIN A: Cardiac activity: 144 bpm. Presentation: Transverse head maternal left. Placenta: Anterior position. Amniotic fluid: 21.5 cm MVP 7.9 cm. TWIN B: Cardiac activity: 152 bpm. Presentation: Transverse head maternal left upper quadrant. Placenta: Anterior position. Amniotic fluid: 21.5 cm MVP 7.4 cm. MATERNAL STRUCTURES The cervix is not visualized. IMPRESSION: 1. 28 weeks 0 day twin gestation with JANUSZ 10/15/2019. 2. Normal ROCIO. 3. No evidence of placenta previa or abruption. RADIA
== END 2019-07-23 22:05 | disposition home or self-care (01) ==
LOC: WFO 15:47 → FBP 15:48 → WFO 22:05
PROVIDERS: ATTEND Obstetrics & Gynecology
DX: O46.93 Antepartum hemorrhage, unspecified, third trimester (principal); O30.003 Twin pregnancy, unspecified number of placenta and unspecified number of amniotic sacs, third trimester; Z3A.28 28 weeks gestation of pregnancy
CPT/HCPCS: 76815; 99214

== ENCOUNTER 2019-07-28 08:00 | Outpatient (CLI) | payer BC, OTHER, MEDICAID ==
[2019-07-28 12:08] LABS: BASOPHILS % (AUTO) 0.2 %; EOSINOPHILS # (AUTO) 0.1 10^3/uL (0.0-0.7); EOSINOPHILS % (AUTO) 1.1 %; HGB - HEMOGLOBIN 10.4 g/dL (12.0-16.0); LYMPHOCYTES # (AUTO) 1.7 10^3/uL (1.5-3.5); LYMPHOCYTES % (AUTO) 18.1 %; MEAN CORPUSCULAR HEMOGLOBIN 26.6 pg (27.0-31.0); MEAN CORPUSCULAR HGB CONC 31.1 g/dL (32.0-36.0); MEAN CORPUSCULAR VOLUME 85.4 fL (81.0-99.0); MEAN PLATELET VOLUME 10.8 fL (7.9-10.8); MONOCYTES # (AUTO) 0.3 10^3/uL (0.0-1.0); MONOCYTES % (AUTO) 3.3 %; NEUTROPHILS # (AUTO) 7.3 10^3/uL (1.5-6.6); NEUTROPHILS % (AUTO) 76.9 %; PLT - PLATELET COUNT 232 10^3/uL (130-450); RED BLOOD COUNT 3.91 10^6/uL (4.20-5.40); RED CELL DISTRIBUTION WIDTH 14.1 % (12.0-15.0); WHITE BLOOD COUNT 9.5 x10^3/uL (4.8-10.8)
== END 2019-07-28 23:59 | disposition home or self-care (01) ==
LOC: LAB.WCP 08:00
PROVIDERS: ATTEND Obstetrics & Gynecology
DX: Z36.89 Encounter for other specified antenatal screening (principal)
CPT/HCPCS: 36415; 82950; 85025

== ENCOUNTER 2019-08-21 17:54 | Outpatient (CLI) | payer BC, OTHER, MEDICAID ==
[2019-08-21 18:43] VITALS: BP 137/62
--- NOTE | 2019-08-30 22:57 | PROCEDURE REPORT ---
- HPI Diagnosis/Indication for NST: Multiple gestation Current EDU 10/15/19 Gestation 32 Weeks and 1 Days 2 Para 1 Vital Signs Temperature 98.2 F 08/21/19 18:16 Heart Rate 104 H 08/21/19 18:16 Respiratory Rate 20 08/21/19 18:16 Blood Pressure 142/68 H 08/21/19 18:16 O2 Saturation 99 08/21/19 18:16 Temperature 98.2 F 08/21/19 18:16 Heart Rate 104 H 08/21/19 18:16 Respiratory Rate 20 08/21/19 18:16 Blood Pressure 137/62 H 08/21/19 18:43 O2 Saturation 99 08/21/19 18:16 - NST Procedure NST Procedure Start Date 08/21/19 Start Time 18:12 Stop Time 18:55 Vibroacoustic Stimulation Used No Patient States Movement Yes EFM A: 145 mod anders 15x15 accels no decel B: 155 mod anders 15x15 accels no decels TOCO: quiet - Results and Plan Findings/Impression: 28 yo at 32+1 wga with di/di twins, elevated BMI,hx of prior here for NST Cat I tracing x2 Continue with twice weekly NST and weekly ROCIO Q4 weeks growth us completed by [facility] Plan to deliver at [facility]
== END 2019-08-21 19:10 | disposition home or self-care (01) ==
LOC: WFO 17:54 → FBP 17:56 → WFO 19:10
PROVIDERS: ATTEND Obstetrics & Gynecology
DX: O30.043 Twin pregnancy, dichorionic/diamniotic, third trimester (principal); O34.219 Maternal care for unspecified type scar from previous cesarean delivery; Z3A.32 32 weeks gestation of pregnancy
CPT/HCPCS: 59025

== ENCOUNTER 2019-08-28 16:36 | Outpatient (CLI) | payer BC, OTHER, MEDICAID ==
[2019-08-28 16:54] VITALS: BP 133/80
--- NOTE | 2019-09-12 13:20 | PROCEDURE REPORT ---
- HPI Diagnosis/Indication for NST: Multiple gestation Current EDU 10/15/19 Gestation 33 Weeks and 1 Days 2 Para 1 Vital Signs Temperature 37.0 C 08/28/19 16:52 Heart Rate 104 H 08/28/19 16:52 Respiratory Rate 22 08/28/19 16:52 Blood Pressure 133/80 H 08/28/19 16:52 O2 Saturation 98 08/28/19 16:52 Temperature 37.0 C 08/28/19 16:52 Heart Rate 104 H 08/28/19 16:52 Respiratory Rate 08/28/19 16:52 Blood Pressure 133/80 H 08/28/19 16:52 O2 Saturation 98 08/28/19 16:52 - NST Procedure NST Procedure Start Date 08/28/19 Start Time 16:45 Stop Time 17:30 Vibroacoustic Stimulation Used No Patient States Movement Yes - Results and Plan Findings/Impression: reactive NST Plan: continue antinatal testing
== END 2019-08-28 17:33 | disposition home or self-care (01) ==
LOC: WFO 16:36 → FBP 16:39 → WFO 17:33
PROVIDERS: ATTEND Obstetrics & Gynecology
DX: O30.003 Twin pregnancy, unspecified number of placenta and unspecified number of amniotic sacs, third trimester (principal); Z3A.33 33 weeks gestation of pregnancy
CPT/HCPCS: 59025

== ENCOUNTER 2019-09-01 18:00 | Outpatient (CLI) | payer BC, OTHER, MEDICAID ==
[2019-09-01 18:33] VITALS: BP 142/76
--- NOTE | 2019-09-16 14:47 | PROCEDURE REPORT ---
- HPI Diagnosis/Indication for NST: Other (BMI > 60) Current EDU 10/15/19 Gestation 33 Weeks and 5 Days 2 Para 1 Vital Signs Temperature 99.1 F 09/01/19 18:20 Heart Rate 94 09/01/19 18:20 Respiratory Rate 18 09/01/19 18:20 Blood Pressure 154/74 H 09/01/19 18:20 O2 Saturation 100 09/01/19 18:20 Temperature 99.1 F 09/01/19 18:20 Heart Rate 96 09/01/19 18:33 Respiratory Rate 18 09/01/19 18:33 Blood Pressure 142/76 H 09/01/19 18:33 O2 Saturation 98 09/01/19 18:33 - NST Procedure NST Procedure Start Date 09/01/19 Start Time 18:11 Stop Time 18:42 Vibroacoustic Stimulation Used No Patient States Movement Yes A: EFM 145 mod anders 15x15 accels no decels B: EFM 150 mod anders 15x15 accels no decels TOCO: quiet - Results and Plan Findings/Impression: 28 yo at 33+ 5 wga with di/di twins here for NST CAT I tracing x2 Comanaged with [facility] with plan to deliver at [facility] with twice weekly NST and weekly fluid level check
== END 2019-09-01 18:45 | disposition home or self-care (01) ==
LOC: WFO 18:00 → FBP 18:02 → WFO 18:45
PROVIDERS: ATTEND Obstetrics & Gynecology
DX: O30.043 Twin pregnancy, dichorionic/diamniotic, third trimester (principal); Z3A.33 33 weeks gestation of pregnancy
CPT/HCPCS: 59025

== ENCOUNTER 2019-09-08 13:04 | Outpatient (CLI) | payer BC, OTHER, MEDICAID | END 2019-09-08 13:05 | disposition home or self-care (01) | LOC: NS 13:04 | PROVIDERS: ATTEND Obstetrics & Gynecology | DX: Z71.3 Dietary counseling and surveillance (principal); E66.01 Morbid (severe) obesity due to excess calories | CPT/HCPCS: 97802 ==

== ENCOUNTER 2019-09-08 15:13 | Outpatient (CLI) | payer BC, OTHER, MEDICAID ==
[2019-09-08 18:12] VITALS: BP 145/77
--- NOTE | 2019-09-08 18:43 | Ultrasound Report ---
Reason: Non-reactive NST for baby A Procedure Date: 09/08/2019 Accession Number: [id number] / [id number] Procedure: US - OB Biophysical Profile CPT Code: Final Report FULL RESULT: EXAM: BIOPHYSICAL PROFILE EXAM DATE: 09/08/2019 04:37 PM. CLINICAL HISTORY: Non-reactive NST for baby A. COMPARISON: OB BIOPHYSICAL PROFILE 07/18/2019 6:32 PM. TECHNIQUE: Real-time sonographic evaluation of the fetus performed by the petrophysical engineer. Multiple access representative static images were saved for review. DATING: Established EGA 34 weeks 5 days with JANUSZ 10/15/2019. GENERAL EVALUATION Twin . Baby A is maternal right-sided. Cardiac activity: 137 bpm. movement: Visualized. Presentation: Breech Placenta: Anterior position. Amniotic fluid: Normal. ROCIO 13 cm. MVP 5.7 cm. BIOPHYSICAL PROFILE Breathing = 2 Movement = 2 Tone = 2 Amniotic Fluid = 2 Total 02/06 IMPRESSION: 1. Colón live intrauterine with gestational age 34 weeks 5 days based on established JANUSZ. 2. Biophysical profile score 8 of 8. ALVIN
--- NOTE | 2019-09-16 15:26 | PROCEDURE REPORT ---
- HPI Diagnosis/Indication for NST: Other (BMI > 60) Current EDU 10/15/19 Gestation 34 Weeks and 5 Days 2 Para 1 Vital Signs Temperature 97.9 F 09/08/19 15:23 Heart Rate 99 09/08/19 15:23 Respiratory Rate 18 09/08/19 15:23 Blood Pressure 145/77 H 09/08/19 15:23 O2 Saturation 100 09/08/19 15:23 Temperature 97.9 F 09/08/19 15:23 Heart Rate 99 09/08/19 15:23 Respiratory Rate 18 09/08/19 15:23 Blood Pressure 145/77 H 09/08/19 15:23 O2 Saturation 100 09/08/19 15:23 - NST Procedure NST Procedure Start Date 09/08/19 Start Time 15:21 Stop Time 16:05 Vibroacoustic Stimulation Used Yes Patient States Movement Yes EFM A: 140 mod anders 15x15 accel and no decels Had a period of non-reactivity prior to BPP BPP 02/06, EFM Cat I after extended observation B: 145 mod anders 15x15 accels no decels TOCO: Quiet - Results and Plan Findings/Impression: 28 yo with khris twin gestation and BMI > 60 at 34+5 wga; co managed with [facility] Initially Baby A had NRNST and BPP was performed with 02/06 Extended observation showed Cat I tracing Baby B with Cat I tracing Cont with twice weekly NST and weekly ROCIO US for growth conducted by [facility]
== END 2019-09-08 18:00 | disposition home or self-care (01) ==
LOC: WFO 15:13 → FBP 15:14 → WFO 18:00
PROVIDERS: ATTEND Obstetrics & Gynecology
DX: O30.043 Twin pregnancy, dichorionic/diamniotic, third trimester (principal); Z71.3 Dietary counseling and surveillance; O99.213 Obesity complicating pregnancy, third trimester; E66.01 Morbid (severe) obesity due to excess calories; Z3A.34 34 weeks gestation of pregnancy
CPT/HCPCS: 59025; 76819; 97802

== ENCOUNTER 2019-09-16 18:12 | Observation (INO) | payer BC, OTHER, MEDICAID ==
[2019-09-16] MEDS ORDERED: LABETALOL 20 MG/4 ML SYRINGE IVP STA (19:06)
[2019-09-16 19:14] LABS: BILIRUBIN,URINE NEGATIVE (NEGATIVE); CLARITY,URINE HAZY (CLEAR); GLUCOSE, URINE (UA) NEGATIVE (NEGATIVE); KETONES,URINE (UA) NEGATIVE (NEGATIVE); LEUKOCYTE ESTERASE, URINE SMALL (NEGATIVE); NITRITE,URINE NEGATIVE (NEGATIVE); OCCULT BLOOD,URINE SMALL (NEGATIVE); PH,URINE 5.5 PH (5.0-7.5); PROTEIN,URINE NEGATIVE (NEGATIVE); UROBILINOGEN,URINE 0.2 (NORMAL) E.U./dL (NORMAL)
[2019-09-16 19:21] LABS: CREATININE,URINE 64.1 mg/dL; PROTEIN/CREATININE RATIO,URINE 0.2 (<=0.2)
[2019-09-16 19:22] LABS: BACTERIA,URINE Few /HPF (None Seen); RBC,URINE 0-5 /HPF (0-5); SQUAMOUS EPITHELIAL CELL,UR MOD Squamous (<= Few)
--- NOTE | 2019-09-16 19:25 | HISTORY & PHYSICAL EXAMINATION ---
Admit History - Visit Reason Visit Reason: Other (28yo at 35 6/7 weeks by first trimester US not c/w LMP di-di twins presents with c/o headache and visual changes since this afternoon. She was seen at clinic today and found to have BPs 130's/80's and was told to recheck it. At home her BP was 210/117. She denies epigastric pain however is also noting nausea since this afternoon. Further denies chest pain, dyspnea, fever/chills. No dysuria, vag bleeding or fluid leak. Normal activity.) - : 2 Parity: 1 Premature: 0 Ectopic: 0 : 0 Care: positive: [facility], Other (Being seen jointly here and at the ) Risk/History: positive: Previous , Other (Morbid obesity (BMI 63.9) HSV) Complications This : positive: Multiple gestation, induced HTN, Pre-eclampsia (Severe by blood pressure and symptom criteria), Other (SEcond trimester bleeding) Smoking Status: Never smoker - Mother's Labs Mother's Blood Type: positive: A Mother's RH: positive: Positive Rubella Status: positive: Immune (HIV/RPR/HepB and C NR Glucola 131 GC/chlam neg) Meds/Allgy - Home Medications Home Medications: Ambulatory Orders Medication Instructions Recorded Confirmed Aspirin [Children's Aspirin] 1 tab PO DAILY 09/16/19 09/16/19 Pnv No.95/Ferrous Fum/Folic AC 1 tab PO DAILY 09/16/19 09/16/19 [ Caplet] - Allergies Allergies/Adverse Reactions: Allergies Allergy/AdvReac Type Severity Reaction Status Date / Time No Known Drug Allergies Allergy Verified 05/14/19 14:36 Review of Systems - Eyes Eyes: reports: Blurred vision, Spots in vision - Cardiovascular Cariovascular: reports: Edema (Notes increased non-dependent edema). denies: Palpitations, Chest pain - Respiratory Respiratory: denies: Cough, SOB at rest, SOB with exertion - Gastrointestinal Gastrointestinal: denies: Abdominal pain, Constipation, Vomiting - Psychiatric Psychiatric: denies: Depression, Anxiety (And as noted above) Physical - Abdominal Exam Vital Signs: Temp Pulse Resp BP Pulse Ox 94 18 169/98 H 100 09/16/19 19:12 09/16/19 19:12 09/16/19 19:12 09/16/19 19:12 Contraction Frequency (min/apart): None Uterine Resting Tone: positive: Soft - Monitoring Strip Review: positive: Category I - Presentation Presentation: positive: Breech (Di-di twins breech/breech by bedside scan) - Vaginal Exam Membranes: positive: Membranes intact - Speculum Exam Speculum Exam Performed: positive: No Exam - Exam Vital Signs: Vital Signs (72 hours) 09/16/19 09/16/19 19:11 19:12 Temperature 99.0 F Heart Rate [ 107 H 94 Monitoring electrodes] Respiratory 20 18 Rate Blood Pressure 178/95 H 169/98 H [Right Radial artery] O2 Saturation 100 100 General: Alert, Oriented x3, Cooperative, No acute distress Lungs: Clear to auscultation, Normal air movement Cardiovascular: Regular rate, No murmurs Abdomen: Normal bowel sounds, Soft, No tenderness (morbidly obese) Extremities: Other (Bipedal edema) Neurological: Normal gait, Normal speech Psych/Mental Status: Mental status NL Assessment/Plan - Assessment/Plan Assessment: 28yo G1 at 35 6/7 weeks with severe preeclampsia by blood pressure and symptom c jose. Di-di twin gestation with previous at term, planning delivery at secondary to morbid obesity (BMI 63.9) Plan admit for magnesium, IV antihypertensives as needed Beta methasone. Expect will transfer to when stabilized.
[2019-09-16] MEDS ORDERED: LACTATED RINGERS 1,000 ML IV ONE (19:31)
[2019-09-16] MEDS: MAGNESIUM SULFATE 2 GRAM 2 GM/50 ML BAG IV SCH ×2 (19:46→20:02)
[2019-09-16] MEDS ORDERED: SODIUM CHLORIDE FLUSH 0.9% 10 ML SYRINGE IVP PRN (19:48)
[2019-09-16] MEDS ORDERED: LABETALOL 20 MG/4 ML SYRINGE IVP PRN (19:48)
[2019-09-16] MEDS ORDERED: fentaNYL 100 MCG/2 ML VIAL IVP PRN (19:48)
[2019-09-16] MEDS ORDERED: ONDANSETRON 4 MG/2 ML VIAL IVP PRN (19:48)
[2019-09-16] MEDS ORDERED: MAGNESIUM SULFATE IN WATER 20 GM/500 ML IV.SOLN IV SCH (20:00)
[2019-09-16] MEDS ORDERED: LACTATED RINGERS 1,000 ML IV SCH (20:00)
[2019-09-16 20:07] LABS: BASOPHILS % (AUTO) 0.3 %; EOSINOPHILS # (AUTO) 0.1 10^3/uL (0.0-0.7); EOSINOPHILS % (AUTO) 1.2 %; HGB - HEMOGLOBIN 10.9 g/dL (12.0-16.0); LYMPHOCYTES # (AUTO) 2.2 10^3/uL (1.5-3.5); LYMPHOCYTES % (AUTO) 22.6 %; MEAN CORPUSCULAR HEMOGLOBIN 24.6 pg (27.0-31.0); MEAN CORPUSCULAR HGB CONC 31.1 g/dL (32.0-36.0); MEAN PLATELET VOLUME 10.4 fL (7.9-10.8); MONOCYTES # (AUTO) 0.4 10^3/uL (0.0-1.0); MONOCYTES % (AUTO) 4.4 %; PLT - PLATELET COUNT 223 10^3/uL (130-450); RED BLOOD COUNT 4.43 10^6/uL (4.20-5.40); RED CELL DISTRIBUTION WIDTH 14.8 % (12.0-15.0); WHITE BLOOD COUNT 9.9 x10^3/uL (4.8-10.8)
[2019-09-16 20:20] LABS: ALBUMIN 2.7 g/dL (3.2-5.5); ALBUMIN/GLOBULIN RATIO 0.6 (1.0-2.2); ALKALINE PHOSPHATASE 203 IU/L (42-121); ALT ALANINE AMINOTRANSFERASE < 10 IU/L (10-60); AST ASPARTATE AMINOTRANSFERASE 13 IU/L (10-42); BILIRUBIN,TOTAL 0.4 mg/dL (0.2-1.0); BUN - BLOOD UREA NITROGEN 8 mg/dL (6-20); CALCIUM 8.9 mg/dL (8.5-10.3); CARBON DIOXIDE - CO2 24 mmol/L (21-32); CHLORIDE 103 mmol/L (101-111); CREATININE 0.5 mg/dL (0.4-1.0); GFR - MDRD 146 (>89); GLUCOSE 95 mg/dL (70-100); SODIUM 137 mmol/L (135-145)
[2019-09-16] MEDS ORDERED: BETAMETHASONE 30 MG/5 ML VIAL IM STA (21:27)
--- NOTE | 2019-09-16 21:27 | PROVIDER PROGRESS NOTE ---
Subjective - Prog Note Date Prog Note Date: 09/16/19 Prog Note Time: 21:25 - Subjective Subjective: Has now received magnesium bolus, on maintenance at 2gm/hr Dose #1 betameth pending Labs normal Required labetalol 10mg IV for pressures 130-140's/80's Headache decreased after labetalol. Stable; continue to cycle BP's, initiate transfer. Objective - Vital Signs/Intake & Output Vital Signs: Vital Signs x48h Temp Pulse Resp BP BP BP Pulse Ox 09/16/19 21:00 91 146/73 H 09/16/19 20:17 99 134/74 H 09/16/19 20:00 97 140/80 H 09/16/19 19:58 94 138/69 H 09/16/19 19:12 94 18 169/98 H 100 09/16/19 19:11 99.0 F 107 H 20 178/95 H 100 Intake & Output: Intake & Output 09/13/19 09/14/19 09/15/19 09/16/19 23:59 23:59 23:59 23:59 Intake Total 40 Output Total 375 Balance -335 - Lab Results Fish Bones: 09/16/19 19:40 09/16/19 19:40 Other Labs: Lab Results x24hrs 09/16/19 09/16/19 09/16/19 Range/Units 19:40 19:40 18:30 WBC 9.9 (4.8-10.8) x10^3/uL RBC 4.43 (4.20-5.40) 10^6/uL Hgb 10.9 L (12.0-16.0) g/dL Hct 35.0 L (37.0-47.0) % MCV 79.0 L (81.0-99.0) fL MCH 24.6 L (27.0-31.0) pg MCHC 31.1 L (32.0-36.0) g/dL RDW 14.8 (12.0-15.0) % Plt Count 223 (130-450) 10^3/uL MPV 10.4 (7.9-10.8) fL Neut # (Auto) 7.0 H (1.5-6.6) 10^3/uL Lymph # (Auto) 2.2 (1.5-3.5) 10^3/uL [place] # (Auto) 0.4 (0.0-1.0) 10^3/uL Eos # (Auto) 0.1 (0.0-0.7) 10^3/uL Baso # (Auto) 0.0 (0.0-0.1) 10^3/uL Absolute Nucleated RBC 0.00 x10^3/uL Nucleated RBC % 0.0 /100WBC Sodium 137 (135-145) mmol/L Potassium 3.9 (3.5-5.0) mmol/L Chloride 103 (101-111) mmol/L Carbon Dioxide 24 (21-32) mmol/L Anion Gap 10.0 (6-13) BUN 8 (6-20) mg/dL Creatinine 0.5 (0.4-1.0) mg/dL Estimated GFR (MDRD) 146 (>89) Glucose 95 (70-100) mg/dL Calcium 8.9 (8.5-10.3) mg/dL Total Bilirubin 0.4 (0.2-1.0) mg/dL AST 13 (10-42) IU/L ALT < 10 L (10-60) IU/L Alkaline Phosphatase 203 H (42-121) IU/L Total Protein 7.0 (6.7-8.2) g/dL Albumin 2.7 L (3.2-5.5) g/dL Globulin 4.3 H (2.1-4.2) g/dL Albumin/Globulin Ratio 0.6 L (1.0-2.2) Urine Color YELLOW Urine Clarity HAZY (CLEAR) Urine pH 5.5 (5.0-7.5) PH Ur Specific [place] 1.010 (1.002-1.030) Urine Protein NEGATIVE (NEGATIVE) mg/dL Urine Glucose (UA) NEGATIVE (NEGATIVE) mg/dL Urine Ketones NEGATIVE (NEGATIVE) mg/dL Urine Occult Blood SMALL H (NEGATIVE) Urine Nitrite NEGATIVE (NEGATIVE) Urine Bilirubin NEGATIVE (NEGATIVE) Urine Urobilinogen 0.2 (NORMAL) (NORMAL) E.U./dL Ur Leukocyte Esterase SMALL H (NEGATIVE) Urine RBC 0-5 (0-5) /HPF Urine WBC 4-5 (0-5) /HPF Ur Squamous Epith Cells MOD Squamous H (<= Few) Urine Bacteria Few (None Seen) /HPF Urine Culture Comments NOT INDICATED Urine Creatinine mg/dL Ur Total Protein Timed mg/dL Protein/Creatinin Ratio (<=0.2) 03/17/20 Range/Units 18:30 WBC (4.8-10.8) x10^3/uL RBC (4.20-5.40) 10^6/uL Hgb (12.0-16.0) g/dL Hct (37.0-47.0) % MCV (81.0-99.0) fL MCH (27.0-31.0) pg MCHC (32.0-36.0) g/dL RDW (12.0-15.0) % Plt Count (130-450) 10^3/uL MPV (7.9-10.8) fL Neut # (Auto) (1.5-6.6) 10^3/uL Lymph # (Auto) (1.5-3.5) 10^3/uL [place] # (Auto) (0.0-1.0) 10^3/uL Eos # (Auto) (0.0-0.7) 10^3/uL Baso # (Auto) (0.0-0.1) 10^3/uL Absolute Nucleated RBC x10^3/uL Nucleated RBC % /100WBC Sodium (135-145) mmol/L Potassium (3.5-5.0) mmol/L Chloride (101-111) mmol/L Carbon Dioxide (21-32) mmol/L Anion Gap (6-13) BUN (6-20) mg/dL Creatinine (0.4-1.0) mg/dL Estimated GFR (MDRD) (>89) Glucose (70-100) mg/dL Calcium (8.5-10.3) mg/dL Total Bilirubin (0.2-1.0) mg/dL AST (10-42) IU/L ALT (10-60) IU/L Alkaline Phosphatase (42-121) IU/L Total Protein (6.7-8.2) g/dL Albumin (3.2-5.5) g/dL Globulin (2.1-4.2) g/dL Albumin/Globulin Ratio (1.0-2.2) Urine Color Urine Clarity (CLEAR) Urine pH (5.0-7.5) PH Ur Specific [place] (1.002-1.030) Urine Protein (NEGATIVE) mg/dL Urine Glucose (UA) (NEGATIVE) mg/dL Urine Ketones (NEGATIVE) mg/dL Urine Occult Blood (NEGATIVE) Urine Nitrite (NEGATIVE) Urine Bilirubin (NEGATIVE) Urine Urobilinogen (NORMAL) E.U./dL Ur Leukocyte Esterase (NEGATIVE) Urine RBC (0-5) /HPF Urine WBC (0-5) /HPF Ur Squamous Epith Cells (<= Few) Urine Bacteria (None Seen) /HPF Urine Culture Comments Urine Creatinine 64.1 mg/dL Ur Total Protein Timed 10 mg/dL Protein/Creatinin Ratio 0.2 (<=0.2)
--- NOTE | 2019-09-16 21:34 | DISCHARGE TRANSFER SUMMARY ---
Transfer Summary Admit Date: 09/16/19 Transfer Date: 09/16/19 Discharging Provider: Linh Sidhu MD Code Status: Attempt Resuscitation Condition at Discharge: Stable Discharge Disposition: 02 Transfer Acute Care Hosp Discharge Facility [facility]: [facility] Transfer to Location: [facility] - DIAGNOSES Admission Diagnoses: at 35 6/7 weeks, di-di twins Severe preeclampsia by BP and symptom criteria Discharge Diagnoses with Status of Each Condition: Same; stabilized - HPI History of Present Illness: 28yo at 35 6/7 weeks by first trimester US not c/w LMP di-di twins presents with c/o headache and visual changes since this afternoon. She was seen at clinic today and found to have BPs 130's/80's and was told to recheck it. At home her BP was 210/117. She denies epigastric pain however is also noting nausea since this afternoon. Further denies chest pain, dyspnea, fever/chills. No dysuria, vag bleeding or fluid leak. Normal activity. - HOSPITAL COURSE Hospital Course: BPs on arrival were noted to be 170-180/98-100. Labs were drawn. IV access was obtained and she was started on magnesium; a 4gm bolus was given followed by maintenance of 2gm/hr. She was given labetalol 10mg IVP with resultant pressures 130-140's/80's and improvement in the headache. Labs were unremarkable. Her history is significant for a previous at term and morbid obesity w BMI 63.9 She has a rpt c/s planned at the . Bedside scan was done showing the twins in breech/breech presentation. A saxena catheter to monitor I&O was placed and she was given 12mg IM betamethasone and an additional dose of labetalol 200mg PO prior to transfer. - ALLERGIES Allergies/Adverse Reactions: Allergies Allergy/AdvReac Type Severity Reaction Status Date / Time No Known Drug Allergies Allergy Verified 05/14/19 14:36 - MEDICATIONS Home Medications: Ambulatory Orders Medication Instructions Recorded Confirmed Aspirin [Children's Aspirin] 1 tab PO DAILY 09/16/19 09/16/19 Pnv No.95/Ferrous Fum/Folic AC 1 tab PO DAILY 09/16/19 09/16/19 [ Caplet] - PHYSICAL EXAM AT DISCHARGE General Appearance: positive: No acute distress, Alert Respiratory: positive: No respiratory distress, Breath sounds nml Cardiovascular: positive: Regular rate & rhythm, No murmur Abdomen: positive: Non-tender, Nml bowel sounds, No distention (Gravid, morbidly obese) Skin: positive: Color nml, No rash, Warm, Dry Extremities: positive: Pedal edema (Pt reports non-dependent edema increased in past few days) - LABS Result Diagrams: 09/16/19 19:40 09/16/19 19:40 - DIAGNOSTIC IMAGING Diagnostic Imaging Results Comments: Bedside scan; breech/breech twins. Grossly normal fluid. EFW's not done
[2019-09-16] MEDS ORDERED: LABETALOL 100 MG TABLET PO STA (21:54)
[2019-09-16 23:38] VITALS: BP 128/56
[2019-09-17] MEDS ORDERED: SODIUM CHLORIDE FLUSH 0.9% 10 ML SYRINGE IVP SCH (01:00)
== END 2019-09-16 23:41 | disposition short-term general hospital (02) ==
LOC: WFO 18:12 → FBP 18:14 → WFO 19:47 → UNDOADMIN 19:48 → FBP 19:48
PROVIDERS: ADMIT Obstetrics & Gynecology; ATTEND Obstetrics & Gynecology
DX: O14.13 Severe pre-eclampsia, third trimester (principal); Z3A.35 35 weeks gestation of pregnancy; O30.043 Twin pregnancy, dichorionic/diamniotic, third trimester; O99.213 Obesity complicating pregnancy, third trimester; E66.01 Morbid (severe) obesity due to excess calories; O31.8X32 Other complications specific to multiple gestation, third trimester, fetus 2; O32.1XX2 Maternal care for breech presentation, fetus 2
CPT/HCPCS: 80053; 81001; 82570; 84156; 85025; 96365; 96366; 96372; 96375; A9270; G0378; J7120; 87086

== ENCOUNTER 2019-11-20 17:22 | Outpatient (CLI) | payer BC, OTHER, MEDICAID | END 2019-11-20 17:23 | disposition home or self-care (01) | LOC: COV 17:22 | PROVIDERS: ATTEND Family Medicine | DX: R05 Cough (principal); Z20.828 Contact with and (suspected) exposure to other viral communicable diseases; M79.10 Myalgia, unspecified site; R53.83 Other fatigue; R07.0 Pain in throat | CPT/HCPCS: 81599 ==

== ENCOUNTER 2019-12-30 07:00 | Outpatient (CLI) | payer BC, OTHER | END 2019-12-30 23:59 | disposition home or self-care (01) | LOC: LAB.R 07:00 | PROVIDERS: ATTEND Nurse Practitioner Family | DX: R30.0 Dysuria (principal) | CPT/HCPCS: 87086; 87181 ==

== ENCOUNTER 2020-01-26 08:25 | Outpatient (CLI) | payer BC, OTHER | END 2020-01-26 08:26 | disposition critical access hospital (66) | LOC: EMS 08:25 | PROVIDERS: ATTEND Surgery | DX: R45.851 Suicidal ideations (principal) | CPT/HCPCS: A0425; A0429 ==

== ENCOUNTER 2020-03-02 23:00 | Emergency (ER) | payer BC, OTHER ==
--- NOTE | 2020-03-02 23:28 | ED Physician Documentation ---
PD HPI URI - Stated complaint Stated Complaint: N/V/F/D/COUGH/SORE THROAT - Chief complaint Chief Complaint: Heent - History obtained from History obtained from: Patient - History of Present Illness Timing - onset: How many days ago (3) Timing duration: Days (3) Timing details: Gradual onset, Still present (steadily worse) Associated symptoms: Fever, Chills, Sore throat, Swollen nodes, Dry cough (mild, feeling mainly from throat irritation.). 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 No: Travel, Immunocompromised Similar symptoms before: Diagnosis (Previous episodes of non-group A strep which shows up on culture. Last episode 3 years ago but has had it a few times before that as well.) Recently seen: Not recently seen Review of Systems Constitutional: reports: Chills, Myalgias. denies: Fever Nose: denies: Congestion, Sinus pressure / pain Throat: reports: Sore throat. denies: Oral lesions / sores Cardiac: denies: Chest pain / pressure, Palpitations Respiratory: denies: Dyspnea, Cough GI: reports: Nausea, Diarrhea (common symptom for her when well as well.). 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 - Present Medications Home Medications: Ambulatory Orders Medication Instructions Recorded Confirmed Aspirin [Children's Aspirin] 1 tab PO DAILY 09/16/19 09/16/19 Pnv No.95/Ferrous Fum/Folic AC 1 tab PO DAILY 09/16/19 09/16/19 [ Caplet] Albuterol Sulfate [Albuterol 2 puffs IH QID #1 hfa.aer.ad 03/03/20 Sulfate Hfa] Cephalexin [Keflex] 500 mg PO Q6H #28 capsule 03/03/20 Hydrocodone/Acetaminophen [[place] 1 each PO Q6H PRN #10 tablet 03/03/20 5-325 Tablet] dexAMETHasone [Decadron] 4 mg PO DAILY #5 tablet 03/03/20 - Allergies Allergies/Adverse Reactions: Allergies Allergy/AdvReac Type Severity Reaction Status Date / Time No Known Drug Allergies Allergy Verified 03/02/20 23:15 - Social History Does the pt smoke?: No Smoking Status: Never smoker Does the pt drink ETOH?: No Does the pt have substance abuse?: No - Immunizations Immunizations are current?: Yes - POLST Patient has POLST: No PD ED PE NORMAL - Vitals Vital signs reviewed: Yes - General General: Alert and oriented X 3, Well developed/nourished, Other (appears uncomfortable with swallowing. ) - HEENT HEENT: Ears normal, Moist mucous membranes. No: Pharynx benign (There is some swelling of both tonsils with mild exudate on the right. No peritonsillar edema. She has a normal voice. The gums and palate appear normal.) - Neck Neck: Supple, no meningeal sign, Other (Mild anterior adenopathy which is tender.) - Cardiac Cardiac: RRR, No murmur - Respiratory Respiratory: Clear bilaterally - Abdomen Abdomen: Soft, Non tender, Other (obese) - Derm Derm: Normal color, Warm and dry, No rash - Neuro Neuro: Alert and oriented X 3, No motor deficit, Normal speech Results - Vitals Vitals: Vital Signs - 24 hr 03/02/20 03/03/20 03/03/20 23:12 00:16 00:25 Temperature 36.7 C 37.1 C Heart Rate 80 93 91 Respiratory 17 16 18 Rate Blood Pressure 143/91 H 129/80 O2 Saturation 98 96 Oxygen O2 Source Room air - Labs Labs: Laboratory Tests 03/02/20 23:15 Group A Strep Rapid Negative PD MEDICAL DECISION MAKING - ED course Complexity details: considered differential (She has symptoms and exam consistent with bacterial pharyngitis. Previous visits had shown culture results for group B strep. I would treat empirically with antibiotics pending the culture. 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, it can be prudent to test for COVID as well, tho low suspicio), d/w patient Departure - Departure Disposition: 01 Home, Self Care Clinical Impression: Acute pharyngitis Qualifiers: Pharyngitis/tonsillitis etiology: unspecified etiology Qualified Code(s): J02.9 - Acute pharyngitis, unspecified Condition: Stable Record reviewed to determine appropriate education?: Yes Instructions: ED Strep Pharyngitis Poss Follow-Up: Ros Poole PA [Primary Care Provider] - Prescriptions: Albuterol Sulfate [Albuterol Sulfate Hfa] 2 puffs IH QID #1 hfa.aer.ad dexAMETHasone [Decadron] 4 mg PO DAILY #5 tablet Cephalexin [Keflex] 500 mg PO Q6H #28 capsule Hydrocodone/Acetaminophen [[place] 5-325 Tablet] 1 each PO Q6H PRN #10 tablet PRN Reason: Pain Comments: Your rapid strep test is negative but on exam it does look likely to be a bacterial infection other than group A strep. The culture will result in a couple of days to better evaluate that. Meanwhile we can treat empirically with cephalexin antibiotic as directed over the next week. Also Decadron steroid for inflammation daily for the next several days. Add Tylenol or hydrocodone if needed for pain. You can also use the albuterol inhaler 2 to 3 puffs periodically if needed for feeling of shortness of breath or cough. Off work tomorrow pending further results. We did do a COVID test to make sure it is not that and clinically does not sound as likely. The results should be available tomorrow. Recheck if not improving well over the next few days. Forms: Activity restrictions Discharge Date/Time: 03/03/20 00:26
[2020-03-02 23:31] LABS: RAPID STREP SCREEN Negative (Negative)
[2020-03-03] MEDS: cephALEXin 250 MG CAPSULE PO STA
[2020-03-03] MEDS: BENZONATATE 100 MG CAPSULE PO STA
[2020-03-03] MEDS: CHERRY SYRUP 10 ML UDC PO ONE (00:01)
[2020-03-03] MEDS: DEXAMETHASONE 10 MG/ML VIAL PO STA (00:01)
[2020-03-03] MEDS: ALBUTEROL 1 PUFF INH STA (00:10)
[2020-03-03 00:27] VITALS: BP 129/80
== END 2020-03-03 00:26 | disposition home or self-care (01) ==
LOC: ED 23:00
DX: J02.9 Acute pharyngitis, unspecified (principal); Z20.828 Contact with and (suspected) exposure to other viral communicable diseases; Z79.82 Long term (current) use of aspirin
CPT/HCPCS: 87070; 87430; 87635; 94640; 99283; A9270